=== PATIENT | male | born 1960 | race Caucasian/White ===

== ENCOUNTER → 2019-08-31 | Day surgery (SDC) | payer OTHER ==
[~2019-08-31] MED LIST: ATORVASTATIN CA20 MG PO; CRESTOR20 MG PO; FENOFIBRATE67 MG PO; FENTANYL CITRATE/PF 100MCG/2 ML INJ ONE; HYOSCYAMINE 0.125 MG TAB ONE; LISINOPRIL20 MG PO; MIDAZOLAM HCL 2 MG/2 ML VIAL ONE; PROPOFOL IV EMULSION 10 MG/ML 50 ML VIAL ONE
[2019-08-31 16:05] VITALS: BP 110/75
--- NOTE | 2019-08-31 22:53 | Operative Report ---
DATE OF PROCEDURE: 08/31/2019 SURGEON: Fercho Soto MD PROCEDURE: Colonoscopy with polypectomy. INDICATION FOR COLONOSCOPY: Surveillance colonoscopy, personal history of colon polyps. MEDICATIONS: The patient was done under MAC. Please see anesthesiologist's note. PROCEDURE IN DETAIL: With the patient in left lateral decubitus position, flexible fiberoptic Olympus colonoscope was inserted into the rectum with ease and advanced all the way to the cecum. A minute polyp was removed per the cold biopsy forceps from the cecum. The scope was then withdrawn slowly. Mucosa overlying the ascending and transverse appeared to be within normal limits. Some diverticular disease was noted in the distal descending and the sigmoid colon. One polyp was removed per cold biopsy forceps from the sigmoid colon. The rectum appeared to be within normal limits. The scope was then retroflexed into the distal rectum and moderate-sized internal hemorrhoids were noted, none of which was actively bleeding. The scope was then straightened out it was subsequently withdrawn. The patient tolerated the procedure well. IMPRESSION: 1. Cecal polyp, removed per cold biopsy forceps. 2. Diverticulosis. 3. Sigmoid colon polyp removed per cold biopsy forceps. 4. Internal hemorrhoids, none actively bleeding. PLAN: Follow up histology. Initiate high-fiber, low-fat diet. Initiate high-fiber supplement. The patient might benefit from a followup colonoscopy in 3 to 5 years. Fercho Soto MD [facility] [place]/[facility] /[id number] cc: Bruce Doe DO
== END | disposition home or self-care (01) ==
LOC: OR 11:19
PROVIDERS: ATTEND Internal Medicine Gastroenterology
DX: Z12.11 Encounter for screening for malignant neoplasm of colon (principal); D12.0 Benign neoplasm of cecum; Z86.010 Personal history of colon polyps; J34.89 Other specified disorders of nose and nasal sinuses; G47.33 Obstructive sleep apnea (adult) (pediatric); I10 Essential (primary) hypertension; E78.5 Hyperlipidemia, unspecified; K63.5 Polyp of colon; K57.30 Diverticulosis of large intestine without perforation or abscess without bleeding; K64.8 Other hemorrhoids; Z01.810 Encounter for preprocedural cardiovascular examination
CPT/HCPCS: 45380; 93005; J2250; J2704; J3010; 45378; 45384

== ENCOUNTER → 2022-05-27 | Day surgery (SDC) | payer OTHER ==
[~2022-05-27] MED LIST changes: +ARIMIDEX1 MG PO; +AZILECT1 MG PO; +DHEA 10 MG TAB1 EACH PO; -FENTANYL CITRATE/PF 100MCG/2 ML INJ ONE; +FISH OIL 1,001000 M1 PO; -HYOSCYAMINE 0.125 MG TAB ONE; +HYOSCYAMINE SULFATE 0.5 MG/ML INJ ONE; -MIDAZOLAM HCL 2 MG/2 ML VIAL ONE; -PROPOFOL IV EMULSION 10 MG/ML 50 ML VIAL ONE; +SINEMET 25-1001 EACH PO; +TEMAZEPAM15 MG PO; +VALSARTAN-HCTZ1 EAC2 PO; +VITAMIN D3 COM1 EACH PO; +XYZAL5 MG PO
[2022-05-27 18:55] VITALS: BP 136/82
== END | disposition home or self-care (01) ==
LOC: OR 13:40
PROVIDERS: ATTEND Internal Medicine Gastroenterology
DX: Z12.11 Encounter for screening for malignant neoplasm of colon (principal); D12.3 Benign neoplasm of transverse colon; D12.0 Benign neoplasm of cecum; K57.30 Diverticulosis of large intestine without perforation or abscess without bleeding; K64.8 Other hemorrhoids; Z86.010 Personal history of colon polyps; G47.33 Obstructive sleep apnea (adult) (pediatric); I10 Essential (primary) hypertension; F41.9 Anxiety disorder, unspecified; Z68.30 Body mass index [BMI] 30.0-30.9, adult; G20 Parkinson's disease; Z01.810 Encounter for preprocedural cardiovascular examination; Z01.812 Encounter for preprocedural laboratory examination; Z20.822 Contact with and (suspected) exposure to COVID-19
CPT/HCPCS: 0223U; 36415; 45380; 45385; 93005; J1980; 45378